=== PATIENT | female | born 1970 | race Caucasian/White ===

== ENCOUNTER 2019-04-30 10:59 | Observation (INO) | payer OTHER, SELFPAY ==
[~2019-04-30] VITALS: Ht 157.5 cm; Wt 63.4 kg
[2019-05-01 15:17] VITALS: BP 171/99
== END 2019-05-01 15:55 | disposition home or self-care (01) ==
LOC: ED 16:19 → INTOOBSV 17:14 → 5SO 17:14 → DCLOUNGE 05-01 15:45
PROVIDERS: ADMIT Family Medicine; ATTEND Family Medicine
DX: R07.89 Other chest pain (principal); I16.0 Hypertensive urgency; F41.9 Anxiety disorder, unspecified; F17.210 Nicotine dependence, cigarettes, uncomplicated; Z90.710 Acquired absence of both cervix and uterus
CPT/HCPCS: 36415; 71045; 80048; 80053; 83735; 83880; 84484; 85025; 85379; 85610; 93005; 93017; 93306; 96374; 96375; 99284; G0378; J2270; J2405

== ENCOUNTER 2019-05-06 06:33 | Inpatient (IN) | payer OTHER ==
[~2019-05-06] VITALS: Ht 157.5 cm; Wt 65.0 kg
[2019-05-08 08:45] VITALS: BP 169/103
== END 2019-05-08 15:26 | disposition home or self-care (01) | DRG 281 ==
LOC: ED 08:08 → EDIP 08:31 → SUATTDRO 08:34 → 5SO 10:06 → DCLOUNGE 05-08 15:05
PROVIDERS: ADMIT Internal Medicine; ATTEND Internal Medicine
PROC: 4A023N7 Measurement of Cardiac Sampling and Pressure, Left Heart, Percutaneous Approach (ICD-10-PCS; principal; 2019-05-06)
PROC: B2111ZZ Fluoroscopy of Multiple Coronary Arteries using Low Osmolar Contrast (ICD-10-PCS; 2019-05-06)
PROC: B2151ZZ Fluoroscopy of Left Heart using Low Osmolar Contrast (ICD-10-PCS; 2019-05-06)
DX: I21.4 Non-ST elevation (NSTEMI) myocardial infarction (principal); I16.9 Hypertensive crisis, unspecified; F17.210 Nicotine dependence, cigarettes, uncomplicated; G43.109 Migraine with aura, not intractable, without status migrainosus; I10 Essential (primary) hypertension; I25.119 Atherosclerotic heart disease of native coronary artery with unspecified angina pectoris; F12.11 Cannabis abuse, in remission; Z80.8 Family history of malignant neoplasm of other organs or systems; Z79.899 Other long term (current) drug therapy; Z82.49 Family history of ischemic heart disease and other diseases of the circulatory system; Z85.41 Personal history of malignant neoplasm of cervix uteri; Z85.42 Personal history of malignant neoplasm of other parts of uterus; Z90.710 Acquired absence of both cervix and uterus; Z91.14 Patient's other noncompliance with medication regimen
CPT/HCPCS: 36415; 93458; 96374; 96375; 99285; J3490; 71045; 71275; 80048; 80053; 80307; 82040; 84484; 85025; 85520; 93005; 99156; 99157; C1769; C1894; G0378; J0583; J1644; J2250; J2405; J2550; J3010; Q9967; J0360; J2270; J7030

== ENCOUNTER 2019-10-26 07:09 | Inpatient (IN) | payer OTHER ==
[~2019-10-26] VITALS: Ht 157.5 cm; Wt 66.0 kg
[~2019-10-26 07:09] MED LIST: ASPI-515 PO; ATOR-2 PO; CARV6.2512 PO; LISI-167 PO; LISI-170 PO; NICO-486 TD; TICA90TA PO
--- NOTE | 2019-10-26 07:59 | NUR ---
First contact with pt. Pt c/o L groin pain with nausea and intermittent diarrhea x1 month. Pt also c/o anxiety x7 days r/t this. Pt tearful, anxious and restless in bed. Pt provided verbal reassurance and warm blanket. Pt encouraged to provide urine sample as soon as she is able.
[2019-10-26 08:01] LABS: MEAN CORPUSCULAR HEMOGLOBIN 30.1 pg (27.0-34.8); MEAN CORPUSCULAR HGB CONC 33.4 g/dL (32.4-35.8); MEAN CORPUSCULAR VOLUME 89.9 fL (80-100); MEAN PLATELET VOLUME 7.5 fL (7.4-10.4); PLATELET COUNT 420 x10^3/uL (130-400); RED BLOOD COUNT 3.84 x10^6/uL (3.82-5.3); RED CELL DISTRIBUTION WIDTH 13.5 % (9.6-15.2)
--- NOTE | 2019-10-26 08:01 | NUR ---
Pt ambulatory to bathroom with steady gait to attempt to provide urine sample.
[2019-10-26 08:13] LABS: ALANINE AMINOTRANSFERASE 16 U/L (12-78); ALBUMIN 3.1 g/dL (3.4-5.0); ANION GAP 9 mmol/L (5-15); CHLORIDE 107 mmol/L (98-107); CREATININE 0.79 mg/dL (0.55-1.02)
[2019-10-26 08:16] LABS: ALKALINE PHOSPHATASE 106 U/L (45-117); BILIRUBIN,TOTAL 0.4 mg/dL (0.2-1.0); TOTAL PROTEIN 8.1 g/dL (6.4-8.2)
--- NOTE | 2019-10-26 08:18 | NUR ---
Pt back to bed, urine sample labeled at bedside and walked to lab. Pt appears more calm at this time, looking at her phone, INDER.
[2019-10-26 08:23] LABS: BASOPHILS # (AUTO) 0.02 x10^3/uL (0-0.1); BASOPHILS % (AUTO) 0 % (0-1); EOSINOPHILS # (AUTO) 0.02 x10^3/uL (0-0.4); EOSINOPHILS % (AUTO) 0 % (1-7); LYMPHOCYTES # (AUTO) 1.61 x10^3/uL (1-3.4); LYMPHOCYTES % (AUTO) 12 % (22-44); MD SCAN; MONOCYTES # (AUTO) 0.61 x10^3/uL (0.2-0.8); MONOCYTES % (AUTO) 4 % (2-9); NEUTROPHILS # (AUTO) 11.54 x10^3/uL (1.8-6.8); NEUTROPHILS % (AUTO) 84 % (42-75)
[2019-10-26 08:37] LABS: CULTURE INDICATED? YES; MICROSCOPIC INDICATED
--- NOTE | 2019-10-26 08:39 | NUR ---
Pt req water. Pt to remain NPO at this time per PA. Pt updated on this, verbalizes understanding.
[2019-10-26] MEDS ORDERED: SODIUM CHLORIDE FLUSH 10ML SYR IVF ONE (09:30)
--- NOTE | 2019-10-26 09:50 | NUR ---
pt a&o, resps even and unlabored, pt to have CT abd. pt informed of POC, agreeable. nadn at this time. family at bedside.
[2019-10-26] MEDS ORDERED: MORPHINE SULFATE 4 MG/ML, 1ML ONE (10:35)
[2019-10-26] MEDS ORDERED: ONDANSETRON 2MG/ML, 2ML ONE (10:35)
--- NOTE | 2019-10-26 10:42 | NUR ---
PT NOTING LEFT HIP PAIN LEVEL 6/10, REQUESTING PAIN MEDICATION. PT STATES SHE HAS NO ALLERGIES, DOES BECOME ITCHY WITH OPTIATES BUT NEVER DEVELOPS RASH OR ANGIOEDEMA. EDPA INFORMED, EDPA OK'D RN TO ADMIN MORPHINE ORDERED. PT STATES SHE DOES NOT CONSIDER MORPHINE AN ALLERGY, PT AGREES TO MEDS ORDERED. MEDS ADMIN SLOW IV PUSH, BP AND SPO2 MONITORS IN PLACE. PT A&O, RESPS EVEN AND UNLABORED. PT'S PARENTS AT BEDSIDE. PT AWAITING CT AND DISPO.
--- NOTE | 2019-10-26 10:47 | NUR ---
PT REPORTS PAIN RESOLVED COMPLETELY. PT A&O, RESPS EVEN AND UNLABORED. NADN. AWAITING CT AND DISPO.
[2019-10-26] MEDS ORDERED: MORPHINE SULFATE 4 MG/ML, 1ML IVPush PRN (11:00)
[2019-10-26] MEDS ORDERED: ONDANSETRON 2MG/ML, 2ML IVPush ONE (11:00)
--- NOTE | 2019-10-26 11:00 | NUR ---
LATE ENTRY: REPORT GIVEN TO ANASTASIIA SHEIKH.
[2019-10-26] MEDS ORDERED: OMNIPAQUE 350 MG/ML, 100ML BOTTLE ONE (11:34)
--- NOTE | 2019-10-26 12:00 | NUR ---
PT TO BE ADMITTED, PT UPDATED WITH POC AND RESULTS BY PROVIDERS.
[2019-10-26] MEDS ORDERED: METRONIDAZOLE PMX 500MG/100ML 100 ML IV ONE (12:30)
[2019-10-26] MEDS ORDERED: CEFTRIAXONE PMX 1GM/50ML 50 ML IV ONE (12:30)
[2019-10-26] MEDS ORDERED: ASPI-515 PO (12:43)
[2019-10-26] MEDS ORDERED: ACET650S21 PO (12:43)
--- NOTE | 2019-10-26 12:43 | NUR ---
SHALINI RICHMOND NOTIFIED PT MEETING CRITERIA FOR SEPSIS, BLOOD CX AND LACTIC ACID ORDERS RECEIVED. AWAITING BLOOD CX BEFORE ABX ADMIN, LAB AT BEDSIDE AT THIS TIME. PT A&O, RESPS EVEN AND UNLABORED, PT DENIES PAIN AT THIS TIME.
[2019-10-26] MEDS ORDERED: CEFTRIAXONE PMX 1GM/50ML 50 ML ONE (12:57)
[2019-10-26] MEDS ORDERED: LIDOCAINE 1%, 10ML ONE (13:12)
[2019-10-26] MEDS ORDERED: FENTANYL PF 100 MCG/2ML ONE (13:56)
[2019-10-26] MEDS ORDERED: MIDAZOLAM 1 MG/ML, 5ML ONE ×2 (13:57)
[2019-10-26] MEDS ORDERED: FLUMAZENIL 0.1 MG/1 ML, 5ML ONE (13:57)
[2019-10-26] MEDS ORDERED: NALOXONE 1 MG/ML, 2ML ONE (13:57)
--- NOTE | 2019-10-26 14:05 | NUR ---
REPORT GIVEN TO IR RN, PRE-PROCEDURAL PAPERWORK COMPLETED BY THIS RN. PT TAKEN TO IR AT THIS TIME.
--- NOTE | 2019-10-26 14:14 | NUR ---
REPORT GIVEN TO RECEIVING GAVIN HYATT. PT IN IR AT THIS TIME.
[2019-10-26] MEDS ORDERED: SODIUM CHLORIDE 0.9% 1,000 ML IV SCH (14:15)
[2019-10-26] MEDS ORDERED: SODIUM CHLORIDE 0.9% 1,000 ML IV ONE (14:21)
[2019-10-26] MEDS ORDERED: DOCUSATE 100 MG CAPSULE PO PRN (14:30)
[2019-10-26] MEDS ORDERED: morphine SULFATE 10 MG/ML, 1ML IVPush PRN (14:30)
[2019-10-26] MEDS ORDERED: POLYETHYLENE GLYCOL 17 GM PACKET PO PRN (14:30)
[2019-10-26] MEDS ORDERED: ONDANSETRON ODT 4 MG PO PRN (14:30)
[2019-10-26] MEDS ORDERED: ACETAMINOPHEN 650 MG/20.3 ML UDC PO PRN (14:30)
[2019-10-26] MEDS ORDERED: BISACODYL 10 MG SUPP PR PRN (14:30)
[2019-10-26] MEDS ORDERED: ACETAMINOPHEN 325 MG TABLET PO PRN (14:30)
[2019-10-26] MEDS ORDERED: PROMETHAZINE 25 MG/ML, 1ML IM PRN (14:30)
[2019-10-26] MEDS ORDERED: ONDANSETRON 2MG/ML, 2ML IVPush PRN (14:30)
[2019-10-26] MEDS ORDERED: hydrALAzine 20 MG/ML, 1ML IVPush PRN (14:30)
[2019-10-26] MEDS ORDERED: METRONIDAZOLE PMX 500MG/100ML 100 ML ONE (14:31)
[2019-10-26 14:52] LABS: FREE T4 (FREE THYROXINE) 1.5 ng/dL (0.76-1.46)
--- NOTE | 2019-10-26 15:01 | NUR ---
Report from Jennifer ANGEL Pt in IR currently.
--- NOTE | 2019-10-26 15:05 | NUR ---
PT BACK FROM IR, REPORT GIVEN TO LARISA HAYS, PT TO RECEIVE FLAGYL AND NS 1L THEN BE TRANSPORTED TO [facility].
[2019-10-26 15:28] VITALS: BP 112/71
[2019-10-26] MEDS: OXYcodone IR 5MG TABLET PO PRN ×2 (16:29→22:42)
[2019-10-26] MEDS: TICAGRELOR 90 MG TABLET PO SCH (17:26)
[2019-10-26] MEDS: CARVEDILOL 6.25 MG TABLET PO SCH (17:27)
[2019-10-26] MEDS: HEPARIN 5,000 UNITS/ML, 1ML SQ SCH (17:30)
[2019-10-26] MEDS: PIPERACILLIN/TAZO/PMX 3.375GM 50 ML IV SCH ×2 (17:47→23:15)
[2019-10-26 20:00] VITALS: BP 101/66
[2019-10-26] MEDS: ASPIRIN 81 MG TABLET EC PO SCH (20:51)
[2019-10-27] MEDS: HEPARIN 5,000 UNITS/ML, 1ML SQ SCH ×3 (02:32→18:14)
[2019-10-27 02:35] VITALS: BP 103/67
[2019-10-27 04:58] LABS: BASOPHILS # (AUTO) 0.04 x10^3/uL (0-0.1); BASOPHILS % (AUTO) 0 % (0-1); EOSINOPHILS # (AUTO) 0.12 x10^3/uL (0-0.4); EOSINOPHILS % (AUTO) 1 % (1-7); LYMPHOCYTES # (AUTO) 2.48 x10^3/uL (1-3.4); LYMPHOCYTES % (AUTO) 26 % (22-44); MD NO; MEAN CORPUSCULAR HEMOGLOBIN 29.5 pg (27.0-34.8); MEAN CORPUSCULAR HGB CONC 32.5 g/dL (32.4-35.8); MEAN CORPUSCULAR VOLUME 90.6 fL (80-100); MEAN PLATELET VOLUME 7.7 fL (7.4-10.4); MONOCYTES # (AUTO) 0.68 x10^3/uL (0.2-0.8); MONOCYTES % (AUTO) 7 % (2-9); NEUTROPHILS # (AUTO) 6.19 x10^3/uL (1.8-6.8); NEUTROPHILS % (AUTO) 65 % (42-75); PLATELET COUNT 324 x10^3/uL (130-400); RED CELL DISTRIBUTION WIDTH 13.9 % (9.6-15.2)
[2019-10-27 05:09] LABS: ALANINE AMINOTRANSFERASE 11 U/L (12-78); ALBUMIN 2.4 g/dL (3.4-5.0); ANION GAP 7 mmol/L (5-15); CALCIUM 8.2 mg/dL (8.5-10.1); CHLORIDE 106 mmol/L (98-107); CHOLESTEROL, TOTAL 138 mg/dL (140-239); CREATININE 0.68 mg/dL (0.55-1.02)
[2019-10-27 05:13] LABS: ALKALINE PHOSPHATASE 95 U/L (45-117); BILIRUBIN,TOTAL 0.3 mg/dL (0.2-1.0); CHOL/HDL RATIO 5.1; HDL CHOL % 20 % (28-40); HDL CHOLESTEROL (DIRECT) 27 mg/dL (40-60); LDL CHOLESTEROL,CALCULATED 94 mg/dL (54-169); LDL/HDL RATIO 3.5 (0.5-3.0); TOTAL PROTEIN 6.5 g/dL (6.4-8.2); TRIGLYCERIDES 85 mg/dL (50-200); VLDL CHOLESTEROL 17 mg/dL (0-25)
[2019-10-27] MEDS: PIPERACILLIN/TAZO/PMX 3.375GM 50 ML IV SCH ×4 (05:20→23:00)
[2019-10-27] MEDS: CARVEDILOL 6.25 MG TABLET PO SCH ×2 (05:22→18:13)
[2019-10-27 07:21] VITALS: BP 111/73
[2019-10-27] MEDS: TICAGRELOR 90 MG TABLET PO SCH ×2 (08:00→18:14)
[2019-10-27] MEDS: LISINOPRIL 40 MG TABLET PO SCH (09:53)
[2019-10-27] MEDS: OXYcodone IR 5MG TABLET PO PRN ×3 (11:18→19:53)
[2019-10-27] MEDS ORDERED: PHARMACOKINETIC MONITORING MC PRN (12:00)
[2019-10-27] MEDS ORDERED: VANCOMYCIN 1,200 MG in SODIUM CHLORIDE 0.9% 250 ML IV SCH (12:00)
[2019-10-27] MEDS ORDERED: VANCOMYCIN PER PHARMACY MC PRN (12:00)
[2019-10-27 12:47] VITALS: BP 108/72
[2019-10-27 19:11] VITALS: BP 108/69
[2019-10-27] MEDS: ASPIRIN 81 MG TABLET EC PO SCH (19:53)
[2019-10-28] MEDS: VANCOMYCIN 1,200 MG in SODIUM CHLORIDE 0.9% 250 ML IV SCH ×2 (00:55→13:00)
[2019-10-28] MEDS: HEPARIN 5,000 UNITS/ML, 1ML SQ SCH ×3 (02:56→17:16)
[2019-10-28 03:00] VITALS: BP 114/76
[2019-10-28] MEDS: PIPERACILLIN/TAZO/PMX 3.375GM 50 ML IV SCH ×4 (04:46→23:06)
[2019-10-28] MEDS: OXYcodone IR 5MG TABLET PO PRN ×2 (04:52→10:46)
[2019-10-28] MEDS: CARVEDILOL 6.25 MG TABLET PO SCH ×2 (05:00→17:17)
[2019-10-28 05:44] LABS: BASOPHILS # (AUTO) 0.04 x10^3/uL (0-0.1); BASOPHILS % (AUTO) 1 % (0-1); EOSINOPHILS # (AUTO) 0.19 x10^3/uL (0-0.4); EOSINOPHILS % (AUTO) 3 % (1-7); LYMPHOCYTES # (AUTO) 2.22 x10^3/uL (1-3.4); LYMPHOCYTES % (AUTO) 36 % (22-44); MD NO; MEAN CORPUSCULAR HEMOGLOBIN 29.5 pg (27.0-34.8); MEAN CORPUSCULAR HGB CONC 33.1 g/dL (32.4-35.8); MEAN CORPUSCULAR VOLUME 89.3 fL (80-100); MONOCYTES # (AUTO) 0.44 x10^3/uL (0.2-0.8); MONOCYTES % (AUTO) 7 % (2-9); NEUTROPHILS # (AUTO) 3.28 x10^3/uL (1.8-6.8); NEUTROPHILS % (AUTO) 53 % (42-75); PLATELET COUNT 367 x10^3/uL (130-400); RED BLOOD COUNT 3.26 x10^6/uL (3.82-5.3); RED CELL DISTRIBUTION WIDTH 14.3 % (9.6-15.2)
[2019-10-28 05:45] LABS: ANION GAP 7 mmol/L (5-15); CALCIUM 8.5 mg/dL (8.5-10.1); CHLORIDE 106 mmol/L (98-107); CREATININE 0.78 mg/dL (0.55-1.02)
[2019-10-28 07:55] VITALS: BP 113/74
[2019-10-28] MEDS: LISINOPRIL 40 MG TABLET PO SCH (07:59)
[2019-10-28] MEDS: TICAGRELOR 90 MG TABLET PO SCH ×2 (07:59→17:16)
[2019-10-28] MEDS ORDERED: CYCLOBENZAPRINE 10 MG TABLET PO PRN (10:00)
[2019-10-28] MEDS ORDERED: LOPERAMIDE 2 MG CAPSULE PO SCH (11:00)
[2019-10-28 11:30] VITALS: BP 108/62
[2019-10-28 12:06] LABS: CLOSTRIDIUM DIFFICILE ANTIGEN NEGATIVE; CLOSTRIDIUM DIFFICILE TOXIN NEGATIVE (Negative)
[2019-10-28 14:41] VITALS: BP 100/64
[2019-10-28] MEDS: hydrOXyzine 10MG TABLET PO PRN ×2 (16:23→21:18)
[2019-10-28] MEDS: POTASSIUM CHLORIDE 20 MEQ TAB.ER.PRT PO SCH (17:16)
[2019-10-28 19:24] VITALS: BP 110/72
[2019-10-28] MEDS: ASPIRIN 81 MG TABLET EC PO SCH (20:13)
[2019-10-28] MEDS: CYCLOBENZAPRINE 10 MG TABLET PO PRN (21:18)
[2019-10-29] MEDS: VANCOMYCIN 1,200 MG in SODIUM CHLORIDE 0.9% 250 ML IV SCH (00:55)
[2019-10-29 01:06] VITALS: BP 131/81
[2019-10-29] MEDS: HEPARIN 5,000 UNITS/ML, 1ML SQ SCH ×3 (02:09→17:58)
[2019-10-29] MEDS: PIPERACILLIN/TAZO/PMX 3.375GM 50 ML IV SCH ×4 (04:53→23:18)
[2019-10-29 05:26] LABS: ANION GAP 8 mmol/L (5-15); CALCIUM 8.8 mg/dL (8.5-10.1); CHLORIDE 108 mmol/L (98-107); CREATININE 1.48 mg/dL (0.55-1.02)
[2019-10-29] MEDS: CARVEDILOL 6.25 MG TABLET PO SCH ×2 (06:41→17:58)
[2019-10-29] MEDS ORDERED: POTASSIUM CHLORIDE 20 MEQ in SODIUM CHLORIDE 0.9% 250 ML IV ONE (07:30)
[2019-10-29] MEDS ORDERED: SODIUM CHLORIDE 0.9% 1,000ML IVBOLUS ONE (07:30)
[2019-10-29 07:44] VITALS: BP 121/86
[2019-10-29] MEDS: CYCLOBENZAPRINE 10 MG TABLET PO PRN ×2 (07:54→17:08)
[2019-10-29] MEDS: POTASSIUM CHLORIDE 20 MEQ TAB.ER.PRT PO SCH (07:54)
[2019-10-29] MEDS: hydrOXyzine 10MG TABLET PO PRN ×2 (07:55→13:44)
[2019-10-29] MEDS: TICAGRELOR 90 MG TABLET PO SCH ×2 (07:55→17:04)
[2019-10-29] MEDS: LOPERAMIDE 2 MG CAPSULE PO SCH ×4 (07:55→20:32)
[2019-10-29] MEDS: LISINOPRIL 40 MG TABLET PO SCH (09:37)
[2019-10-29 12:09] VITALS: BP 144/88
[2019-10-29 20:24] VITALS: BP 114/76
[2019-10-29] MEDS: ASPIRIN 81 MG TABLET EC PO SCH (20:31)
[2019-10-30] MEDS: LOPERAMIDE 2 MG CAPSULE PO SCH ×6 (00:07→17:44)
[2019-10-30 02:27] VITALS: BP 110/72
[2019-10-30] MEDS: HEPARIN 5,000 UNITS/ML, 1ML SQ SCH ×3 (02:30→17:35)
[2019-10-30] MEDS: PIPERACILLIN/TAZO/PMX 3.375GM 50 ML IV SCH (05:04)
[2019-10-30] MEDS: CARVEDILOL 6.25 MG TABLET PO SCH ×2 (05:32→17:34)
[2019-10-30 05:40] LABS: ALBUMIN 2.4 g/dL (3.4-5.0); ANION GAP 5 mmol/L (5-15); CALCIUM 8.9 mg/dL (8.5-10.1); CHLORIDE 111 mmol/L (98-107)
[2019-10-30 05:44] LABS: BASOPHILS # (AUTO) 0.06 x10^3/uL (0-0.1); BASOPHILS % (AUTO) 1 % (0-1); EOSINOPHILS # (AUTO) 0.28 x10^3/uL (0-0.4); EOSINOPHILS % (AUTO) 4 % (1-7); LYMPHOCYTES # (AUTO) 2.32 x10^3/uL (1-3.4); LYMPHOCYTES % (AUTO) 35 % (22-44); MD NO; MEAN CORPUSCULAR HEMOGLOBIN 29.9 pg (27.0-34.8); MEAN CORPUSCULAR HGB CONC 33.6 g/dL (32.4-35.8); MEAN CORPUSCULAR VOLUME 88.8 fL (80-100); MEAN PLATELET VOLUME 7.7 fL (7.4-10.4); MONOCYTES % (AUTO) 8 % (2-9); NEUTROPHILS % (AUTO) 53 % (42-75); PLATELET COUNT 469 x10^3/uL (130-400); RED BLOOD COUNT 3.32 x10^6/uL (3.82-5.3); RED CELL DISTRIBUTION WIDTH 14.9 % (9.6-15.2)
[2019-10-30 05:45] LABS: CREATININE 1.25 mg/dL (0.55-1.02); VANCOMYCIN,RANDOM 12.4 mcg/mL
[2019-10-30] MEDS ORDERED: VANCOMYCIN 1,200 MG in SODIUM CHLORIDE 0.9% 250 ML IV ONE (06:00)
[2019-10-30 06:42] VITALS: BP 123/85
[2019-10-30] MEDS: LISINOPRIL 40 MG TABLET PO SCH (08:10)
[2019-10-30] MEDS: TICAGRELOR 90 MG TABLET PO SCH ×2 (08:10→17:34)
[2019-10-30] MEDS ORDERED: ERTAPENEM 1 GM in SODIUM CHLORIDE 0.9% 50 ML IV SCH (09:00)
[2019-10-30] MEDS: CYCLOBENZAPRINE 10 MG TABLET PO PRN (09:15)
[2019-10-30 13:27] VITALS: BP 137/86
[2019-10-30] MEDS: hydrOXyzine 10MG TABLET PO PRN (13:49)
[2019-10-30] MEDS ORDERED: ONDA4TAB13 PO (16:56)
== END 2019-10-30 19:30 | disposition home or self-care (01) | DRG 871 ==
LOC: ED 10:09 → EDIP 14:15 → 4NE 15:16
PROVIDERS: ADMIT Internal Medicine; ATTEND Family Medicine
PROC: 0W9G30Z Drainage of Peritoneal Cavity with Drainage Device, Percutaneous Approach (ICD-10-PCS; principal; 2019-10-26)
PROC: 02HV33Z Insertion of Infusion Device into Superior Vena Cava, Percutaneous Approach (ICD-10-PCS; 2019-10-30)
PROC: B5181ZA Fluoroscopy of Superior Vena Cava using Low Osmolar Contrast, Guidance (ICD-10-PCS; 2019-10-30)
PROC: B548ZZA Ultrasonography of Superior Vena Cava, Guidance (ICD-10-PCS; 2019-10-30)
DX: A41.9 Sepsis, unspecified organism (principal); K68.19 Other retroperitoneal abscess; I50.32 Chronic diastolic (congestive) heart failure; E87.6 Hypokalemia; F12.10 Cannabis abuse, uncomplicated; F41.9 Anxiety disorder, unspecified; I11.0 Hypertensive heart disease with heart failure; I25.10 Atherosclerotic heart disease of native coronary artery without angina pectoris; I25.2 Old myocardial infarction; Z80.8 Family history of malignant neoplasm of other organs or systems; Z82.49 Family history of ischemic heart disease and other diseases of the circulatory system; Z85.41 Personal history of malignant neoplasm of cervix uteri; Z87.891 Personal history of nicotine dependence; Z90.710 Acquired absence of both cervix and uterus; Z91.14 Patient's other noncompliance with medication regimen; Z79.82 Long term (current) use of aspirin; Z79.899 Other long term (current) drug therapy
CPT/HCPCS: 36415; 75989; 84145; 96365; 96375; 99285; J3490; 36573; 49406; 74177; 80048; 80053; 80061; 80069; 80202; 81001; 83036; 83605; 83735; 84100; 84439; 84443; 85025; 87040; 87070; 87075; 87076; 87077; 87086; 87205; 87324; 93005; 99156; 99157; G0378; J0696; J1335; J1644; J2250; J2405; J2543; J3010; J3370; J3480; Q9967; C1729; C1751; C1769; J2270; J2310; J7030; J7050

== ENCOUNTER → 2019-11-16 | Outpatient (CLI) | payer OTHER ==
[~2019-11-16] MED LIST changes: +ACET650S21 PO; +OMNIPAQUE 350 MG/ML, 100ML BOTTLE ONE; +ONDA4TAB13 PO
== END | disposition home or self-care (01) ==
LOC: RAD 12:01
PROVIDERS: ATTEND Family Medicine
DX: K68.19 Other retroperitoneal abscess (principal); M47.816 Spondylosis without myelopathy or radiculopathy, lumbar region; M51.37 Other intervertebral disc degeneration, lumbosacral region; Z90.710 Acquired absence of both cervix and uterus
CPT/HCPCS: 74177; Q9967